=== PATIENT | female | born 1985 | race Caucasian/White ===

== ENCOUNTER 2019-02-27 18:29 | Emergency (ER) | payer BC ==
--- OUTSIDE RECORDS SUMMARY | 2019-02-27 18:42 | XMS REPORT | Continuity of Care Document ---
:1985 External Reference #:[id number] Author Name Chang Robles RN, OPERATIVE SUPERVISOR (transmitted by agent of provider Olivia G[place]) [place] [address] Care Team Providers Name Role Phone Carlene Olivas M.D. Care Team Information Insurance Underwriter [phone] Problems Active Problems Provider Date Abnormal cervical Papanicolaou smear Tameka Dejesus NP Onset: 08/01/2011 Social History Type Date Description Comments Sex Unknown Tobacco Use Start: Unknown Never Smoked Cigarettes ETOH Use Occasionally consumed alcohol in the past Recreational Drug Use Never Used Drugs Tobacco Use Start: Unknown Patient has never smoked Smoking Status Reviewed: 05/17/17 Patient has never smoked Exercise Type/Frequency Pt does Crossfit regularly Exercise Type/Frequency Exercises regularly Tattoo/Piercing Tattoo on lower back Tattoo/Piercing Pierced ears Seat Belt/Car Seat always uses seat belt Guns in Home Yes, Locked Up Smoke Alarms Yes Smoke Alarms Carbon Monoxide Detector: Yes Recent Travel There has not been recent travel abroad KILLIAN: 11/02/2016 Estimated Date of Based on Final KILLIAN Delivery KILLIAN: 06/08/2016 Estimated Date of Based on Final KILLIAN Delivery Allergies, Adverse Reactions, Alerts Description No Known Drug Allergies Medications Active Medications SIG Qnty Indications Ordering Provider Date Prometrium 2 capsule 60caps Karly Velasco MD 01/05/2019 200mg vaginally at at Capsules bedtime until 12 wks Vitamin D3 1 by mouth every Unknown 2000Unit day Capsules Multiple Vitamin Unknown Tablets Immunizations CPT Code Status Date Vaccine Lot # [id number] Given 08/14/2016 Tetanus, Diphtheria Toxoids/Acellular Pertussis Vaccine 7 Or > [id number] Given 08/14/2016 Rho(D) Immune Globulin Full Dose Intramuscular Vital Signs Date Vital Result Comment 02/23/2018 8:41am BP Systolic 110 mmHg BP Diastolic 60 mmHg Weight 154.00 lb Height 67 inches 5'7" BMI (Body Mass Index) 24.1 kg/m2 05/07/2017 11:21am BP Systolic 120 mmHg BP Diastolic 70 mmHg Weight 146.00 lb Height 67 inches 5'7" BMI (Body Mass Index) 22.9 kg/m2 Results Test Acquired Date Facility Test Result H/L Range Note Xray 01/29/2019 [facility] Transvaginal < pending> [address] [place] [address] [phone] Laboratory test 01/04/2019 [facility] Progesterone @ 14.00 1 finding [address] ng/mL [place], [place] [id number] [phone] 1 PROGESTERONE REFERENCE RANGE: MALE <1.97 NG/ML FEMALE MENSTRUATING FOLLICULAR 0.21 - 1.70 NG/ML LUTEAL 2.25 - 24.20 NG/ML MID-LUTEAL 8.76 - 21.60 NG/ML POSTMENOPAUSAL < 0.90 NG/ML 1ST TRIMESTER 11.40 - 41.00 NG/ML 2ND TRIMESTER 13.80 - 156.00 NG/ML 3RD TRIMESTER >51.40 NG/ML Procedures Date Code Description Status 01/29/2019 09669 Echography Transvaginal Completed Medical Devices Description No Information Available Encounters Description No Information Available Assessments Date Code Description Provider 01/29/2019 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
--- OUTSIDE RECORDS SUMMARY | 2019-02-27 18:42 | XMS REPORT | Continuity of Care Document ---
:1985 External Reference #:[id number] Author Name Chang Robles RN, CORE CUTTER AND REAMER (transmitted by agent of provider Natali Clarke) [place] [address] Care Team Providers Name Role Phone Carlene Olivas M.D. Care Team Information Liquor Grinder Mill Operator [phone] Problems Active Problems Provider Date Abnormal cervical [...] CPT Code Status Date Vaccine Lot # [id number] Given 08/14/2016 Tetanus, Diphtheria Toxoids/Acellular Pertussis Vaccine 7 Or > [id number] Given 08/14/2016 Rho(D) Immune Globulin Full Dose Intramuscular Vital Signs Date Vital Result Comment 01/29/2019 1:59pm BP Systolic 104 mmHg BP Diastolic 68 mmHg Weight 158.00 lb Height 67 inches 5'7" BMI (Body Mass Index) 24.7 kg/m2 02/23/2018 8:41am BP Systolic 110 mmHg BP Diastolic 60 mmHg Weight 154.00 lb Height 67 inches 5'7" BMI (Body Mass Index) 24.1 kg/m2 Results Test Acquired Date Facility Test Result H/L Range Note Laboratory test 01/29/2019 Inhouse lab ([facility]) Vitamin D, 25 <pending > finding Hydroxy Laboratory test 01/29/2019 Laboratory [place] [facility] Type And Screen SPEC EXP 1 finding [address] [place] [address] <SEE NOTE> [phone] Laboratory test 01/04/2019 [facility] Progesterone @ 14.00 2 [address] ng/[place] [address] [phone] SPEC EXP DATE 02/01/2019 PATIENT ABO/Rh AB NEGATIVE ANTIBODY SCREEN NEGATIVE TESTING SITE PERFORMED AT [address] [place] [address] BLOOD BANK COMMENT BLOOD TYPE CONFIRMED. 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 Assessments Date Code Description Provider 01/29/2019 Z32.01 Encounter for test, result Chang Robles RN, CORE CUTTER AND REAMER positive 01/29/2019 N91.1 Secondary amenorrhea Marleny Wright RDMS 01/29/2019 N91.1 Secondary amenorrhea Chang Robles, RN, CORE CUTTER AND REAMER 01/04/2019 Z32.01 Encounter for test, result Propagation ManagerCatie positive Plan of Treatment Future Appointment(s):02/17/2019 8:45 am - [facility] 8:30 am - Chang Robles RN, CORE CUTTER AND REAMER at [facility] - Chang Robles RN, FNPZ32.01 Encounter for test, result positiveComments:In depth review of pfsh. Reviewed practice,CNM care, triage, CH, oncall, answering service etc. Discussed nausea, no rx given at this time, suggest freq small meals including complex carbs, fats, protein ie q 2 hours. reviewed edc/meaning significance etc. Reviewed teratogens and avoidance Discussed centering.Follow up:. ab sc, vit d level and rto 2 wks nob and nob labs with [id number] Secondary amenorrhea Functional Status Functional Condition Comment Date Status None Active Mental Status Description No Information Available Referrals Description No Information Available
[2019-02-27 19:59] LABS: Urine Appearance Clear; Urine Bilirubin Negative (Negative); Urine Blood 2+ (Negative); Urine Color Straw; Urine Glucose Negative (Negative); Urine Ketones Negative (Negative); Urine Nitrite Negative (Negative); Urine Protein Negative (Negative); Urine Specific Gravity 1.006 (1.010-1.030); Urine Urobilinogen Negative (Negative)
[2019-02-27 20:02] LABS: ABS Basophils 0.1 10^3/ul (0-0.2); ABS Eosinophils 0.1 10^3/ul (0-0.6); ABS Lymphocytes 3.2 10^3/ul (1.0-4.8); ABS Monocytes 0.4 10^3/ul (0-0.8); ABS Neutrophils 6.6 10^3/ul (1.5-7.7); Eosinophil % 1.2 %; Hematocrit 39 % (35-47); Hemoglobin 13.4 g/dL (12.0-16.0); Lymphocyte % 30.3 %; Mean Corpuscular HGB Conc 35 g/dL (31-36); Mean Corpuscular Hemoglobin 30 pg (27-31); Mean Corpuscular Volume 87 fL (80-97); Mean Platelet Volume 9.4 fL (7.4-10.4); Nucleated Red Blood Cells % 0.1; Platelet Count 222 10^3/uL (150-450); Red Blood Count 4.45 10^6 /uL (3.70-4.87); Red Cell Distribution Width 15 % (10-15); Urine Bacteria Absent (Absent); Urine Red Blood Cell Trace(0-2/hpf) (Absent); Urine White Blood Cell Absent (Absent); White Blood Count 10.4 10^3/uL (3.5-10.8)
--- NOTE | 2019-02-27 20:08 | ED ---
GI/ HPI - HPI Summary HPI Summary: Patient is a 33 y/o F who is 13 weeks presenting to [facility] with complaints of vaginal bleeding and vaginal discharge. She states that roughly 5 hours ago she experienced an episode of brown vaginal discharge. Patient subsequently went to the bathroom and experienced some vaginal bleeding alongside "sedimentary discharge". Dysuria and abdominal pain are denied. She called her OB and was advised to come to ED. Patient is concerned for miscarriage. She is A1, noting previous miscarriage. Patient is AB- blood type, RH negative. LNMP was December 01, 2018, due date is September 07, 2019. Patient is on vaginal progesterone, no other medications reported. She had a visit with her OB at 11 weeks, heart tone was noted to be present at the time. NKDA reported. She denies tobacco, alcohol, and substance usage. PSHx of tonsillectomy and fibroid adenoma removal from breast. FMHx of hysterectomy due to presence of pre-cancer cells. Home medications and allergies are reviewed. - History of Current Complaint Chief Complaint: EDOBProblems Time Seen by Provider: 02/27/19 19:32 Stated Complaint: 13 WEEKS AND VAGINAL BLEEDING PER PT Hx Obtained From: Patient Onset/Duration: Started Hours Ago Current Severity: None - pain denied Pain Intensity: 0 Associated Signs and Symptoms: Negative: Dysuria, Abdominal Pain Additional Signs & Symptoms: Positive: Vaginal Bleeding, Vaginal Discharge Aggravating Factor(s): Nothing Alleviating Factor(s): Nothing - Allergy/Home Medications Allergies/Adverse Reactions: Allergies Allergy/AdvReac Type Severity Reaction Status Date / Time No Known Allergies Allergy Verified 02/27/19 18:34 PMH/Surg Hx/FS Hx/Imm Hx Sensory History: Denies: Hx Legally Blind, Hx Deafness Opthamlomology History: Denies: Hx Legally Blind EENT History: Denies: Hx Deafness - Surgical History Surgery Procedure, Year, and Place: PSHx of tonsillectomy and fibroid adenoma removal from breast. Infectious Disease History: No Infectious Disease History: Denies: Traveled Outside the [place] in Last 30 Days - Family History Known Family History: Positive: Other - FMHx of hysterectomy due to presence of pre-cancer cells. - Social History Alcohol Use: None Substance Use Type: Reports: None - Additional Comments History Additional Comments: PSHx of tonsillectomy and fibroid adenoma removal from breast. FMHx of hysterectomy due to presence of pre-cancer cells. Review of Systems Negative: Abdominal Pain Genitourinary: Other - positive - vaginal bleeding Positive: discharge - vaginal . Negative: dysuria All Other Systems Reviewed And Are Negative: Yes Physical Exam - Summary Physical Exam Summary: General: Well-developed, Well-nourished female. No acute distress. HEENT: Normocephalic, Atraumatic. Eyes: Conjuctiva normal, PERRL. Oropharynx: Clear, mucous membranes moist, (-) exudates. Neck: Soft, FROM, (-) lymphadenopathy, (-) thyromegaly, (-) JVD. Cardiovascular: Normal sinus rhythm, (-) murmur. Lungs: Clear to auscultation bilaterally (-) wheezes, (-) rales, (-) rhonchi. Abdomen: Soft, non-tender, non-distended, (-) organomegaly, normal bowel sounds. Back: (-) CVA tenderness Extremities: No edema. Skin: Warm, dry, (-) rash. Neuro: Alert and oriented x3, no focal deficits. Psychiatric: Mildly anxious appearing. Triage Information Reviewed: Yes Vital Signs On Initial Exam: Initial Vitals Temp Pulse Resp BP Pulse Ox 98.7 F 96 16 162/89 99 02/27/19 18:31 02/27/19 18:31 02/27/19 18:31 02/27/19 18:31 02/27/19 18:31 Vital Signs Reviewed: Yes Procedures - Sedation Patient Received Moderate/Deep Sedation with Procedure: No Diagnostics - Vital Signs Vital Signs Temp Pulse Resp BP Pulse Ox 02/27/19 18:31 98.7 F 96 16 162/89 99 - Laboratory Result Diagrams: 02/27/19 19:54 02/27/19 19:54 Lab Statement: Any lab studies that have been ordered have been reviewed, and results considered in the medical decision making process. - Ultrasound US Ultrasound Interpretation Completed By: Radiologist Summary of Ultrasound Findings: IMPRESSION: 1. Viable intrauterine with an ultrasound age of 13 weeks 4 days. which correlates to an KILLIAN of 2019 which will be used for the clinical. dates. 2. Small subchorionic implantation hemorrhage. THIS REPORT WAS REVIEWED BY ED PHYSICIAN. Re-Evaluation - Re-Evaluation First Eval Re-Evaluation Time: 22:30 Comment: Results of US and workup were discussed, patient to be discharged and follow up with OB. GIGU Course/Dx - Course Course Of Treatment: 33 year old female presents at 13 weeks gestation with vaginal bleeding starting today. with normal us at 11 weeks. no significant abd pain or fever. no dizziness or lightheadedness. no urinary complaints. RH-. normal exam, good BHCG. ultrasound demonstrated appropriate fetus with good heartbeat and growth. During ED course, patient received rhogam shot. discharged to home. follow up with record press supervisor. follow up sooner for any worsening symptoms. - Diagnoses Provider Diagnoses: Subchorionic bleed Discharge ED - Sign-Out/Discharge Documenting (check all that apply): Patient Departure - discharge - Discharge Plan Condition: Stable Disposition: HOME Patient Education Materials: (ED) Referrals: Rod MAYO,Karly Tejada [Primary Care Provider] - 3 Days Additional Instructions: PLEASE RETURN TO ED FOR ANY NEW OR WORSENING SYMPTOMS. PLEASE FOLLOW UP WITH YOUR PRIMARY CARE PHYSICIAN AND OB WITHIN THREE DAYS. - Billing Disposition and Condition Condition: STABLE Disposition: Home - Attestation Statements Document Initiated by Jillianibe: Yes Documenting Scribe: BRUCE FLYNN Provider For Whom Victor M is Documenting (Include Credential): LISA MILAN MD Scribe Attestation: BRUCE Sheldon scribed for LISA MILAN MD on 02/28/19 at 0006. Scribe Documentation Reviewed: Yes Provider Attestation: The documentation as recorded by the BRUCE finch accurately reflects the service I personally performed and the decisions made by me, LISA MILAN MD Status of Scribe Document: Viewed
[2019-02-27 20:14] LABS: INR 0.95 (0.82-1.09)
[2019-02-27 20:20] LABS: Albumin/Globulin Ratio 1.4 (1-3); BUN/Creatinine Ratio 15.6 (8-20); Calcium 9.2 mg/dL (8.6-10.3); EGFR African American 103.2 (>60); EGFR Non-African American 85.3 (>60); Globulin 2.9 g/dL (2-4); Potassium 3.8 mmol/L (3.5-5.0); Total Bilirubin 0.2 mg/dL (0.2-1.0); Total Protein 6.9 g/dL (6.4-8.9)
[2019-02-27] MEDS ORDERED: RHO D Immune Globulin (HUMAN) 1,500 I.U. SYRINGE IM ONE (20:51)
[2019-02-27 22:55] VITALS: BP 125/70
== END 2019-02-27 22:54 | disposition home or self-care (01) ==
LOC: ED 18:29
DX: O20.9 Hemorrhage in early pregnancy, unspecified (principal); Z3A.13 13 weeks gestation of pregnancy; R42 Dizziness and giddiness
CPT/HCPCS: 36415; 76801; 80053; 81003; 81015; 83605; 84702; 85025; 85610; 86850; 86870; 86880; 86900; 86901; 96372; 99282